=== PATIENT | male | born 1985 | race Caucasian/White ===

== ENCOUNTER → 2024-06-13 12:31 | Outpatient (REF) | payer OTHER, SELFPAY | LOC: RCS 12:31 | PROVIDERS: ATTENDING PHYSICIAN Internal Medicine Infectious Disease; FAMILY PHYSICIAN Registered Nurse | DX: Z01.812 Encounter for preprocedural laboratory examination (principal) | CPT/HCPCS: 93005 ==

== ENCOUNTER → 2024-06-20 11:49 | Outpatient (REF) | payer OTHER, SELFPAY | LOC: REG 11:49 | PROVIDERS: ATTENDING PHYSICIAN Internal Medicine Infectious Disease; FAMILY PHYSICIAN Family Medicine | DX: Z51.81 Encounter for therapeutic drug level monitoring (principal) | CPT/HCPCS: 93005 ==

== ENCOUNTER → 2024-08-06 10:13 | Outpatient (REF) | payer OTHER, SELFPAY | LOC: RCS 10:13 | PROVIDERS: ATTENDING PHYSICIAN Internal Medicine Cardiovascular Disease; FAMILY PHYSICIAN Registered Nurse | DX: I31.39 Other pericardial effusion (noninflammatory) (principal) | CPT/HCPCS: 93306 ==

== ENCOUNTER 2024-12-13 09:17 | Emergency (ER) | payer OTHER, SELFPAY ==
[2024-12-13 09:32] VITALS: BP 139/114
--- NOTE | 2024-12-13 09:35 | ED.GENMED ---
ED Provider Triage
<Gus Daniel PA-C - Last Filed: 12/13/24 09:36>
-
Patient seen by provider in Triage?: Seen in Triage
Attestation: A medical screening examination has been initiated by a qualified medical provider. Based on the assessment performed at this time, it has been determined that an emergent medical condition may exist and the patient has been informed
that further medical evaluation and possible additional diagnostic testing may be needed.
HPI: 39-year-old male presents to the emergency department for evaluation of left-sided chest heaviness that is been ongoing for the past 3 days. No obvious provoking or palliating factors. Describes it as a '200 pound man standing on my chest'.
Has family history of precocious coronary disease, no tobacco use.
GENERAL: Alert , in no apparent distress
EYE: No visual abnormalities.
NECK: Trachea midline
ENT: No visible abnormalities.
LUNGS: No acute respiratory distress
NEUROLOGICAL: Alert and oriented
SKIN: Skin intact. No visible changes.
MUSCULOSKELETAL: Moving extremities normally
PSYCH: Normal and appropriate interaction.
This is a medical evaluation conducted in person to initiate diagnostic evaluation and provide initial therapeutics. Please see further documentation by the treating clinician.
History of Present Illness
<Gus Daniel PA-C - Last Filed: 12/13/24 09:36>
General
Chief Complaint: Chest Pain
Time Seen by Provider: 12/13/24 10:47
<Danni Babcock PA-C - Last Filed: 12/13/24 17:30>
General
Source: patient and family
Exam Limitations: none
History of Present Illness
History of Present Illness:
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 Patient reports left sided chest pain
for the past 3 days. He reports a constant throbbing pain that becomes worse in spirts. Nothing seems to make the pain better or worse. Specifically, he denies any pleuritic or exertional pain. He also had some tingling in his left 4th and 5th
fingers last night. He wants to make sure everything is okay because he has a strong family history of heart disease. He denies any shortness of breath, cough, fever, vomiting. 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 He is no
longer on anticoagulation. He also had pericarditis last year. He had an echocardiogram in July 2024 which was normal.
Past History
<Gus Daniel PA-C - Last Filed: 12/13/24 09:36>
Past History
ED Past Medical History: None
ED Past Surgical History: None
Phy Exam
<Danni Babcock PA-C - Last Filed: 12/13/24 17:30>
General Physical Exam
General Presentation: well appearing and no apparent distress
General age: appears stated age
General Skin: warm and dry
General Habitus: normal
General Mental: alert
ENT Exam
ENT Exam: normocephalic
Cardiovascular Exam
Cardiovascular Exam: regular rate/rhythm and no murmur
Pulmonary Exam
Pulmonary Exam: lungs clear, no respiratory distress, no rales, no crackles and no rhonchi
Neurological Exam
Neurological Exam: alert
[place] Coma Scale
Eye Opening: Spontaneous
Verbal Response: Oriented
Motor Response: Obeys Commands
GCS Total Score: 15
Skin Exam
Skin Exam: normal color and warm/dry
Psychiatric Exam
Psychiatric Exam: normal mood/affect
Scores
<Danni Babcock PA-C - Last Filed: 12/13/24 17:30>
Heart Score for Chest Pain Patients
STEMI patient?: No
History: Moderately Suspicious
ECG: Normal
Age: </= 45 years
Risk Factors: 1 or 2 Risk Factors
Troponin: </= Normal Limit
Heart Score for Chest Pain Patients: 2
Heart Score Risk: 2.5% MACE over next 6 weeks
Course
<Gus Daniel PA-C - Last Filed: 12/13/24 09:36>
Orders/Labs/Results
Orders:
Orders
12/13/24 09:22
Electrocardiogram (*1) Urgent
Reason for Study: Chest Pain
EKG- Treatment ONCE
12/13/24 09:35
CR Chest - 2 Views Urgent
Comment:
Reason For Exam: chest pain
12/13/24 09:46
Complete Blood Count/With Diff Urgent
Comprehensive Metabolic Panel Urgent
Troponin I Urgent
12/13/24 11:21
D-Dimer Urgent
12/13/24 11:55
CT Chest PE Study Urgent
Comment:
Reason For Exam: Chest pain, elevated D-dimer
12/13/24 13:54
Echo 2D MMode Color/Doppler Urgent
Reason for Study: eval pericardial effusion
Abnormal Lab Results
12/13/24 12/13/24
09:46 11:21
MCH 31.5 H pg
(27.0-31.0)
RDW 14.8 H %
(11.5-14.5)
Absolute Neuts (auto) 7.6 H 10^3/uL
(1.4-6.5)
Absolute Monos (auto) 0.8 H 10^3/uL
(0.1-0.6)
Neutrophils % 78.1 H %
(42.2-75.2)
Lymphocytes % 12.2 L %
(20.5-51.1)
D-Dimer 1.23 H ug/mlFEU
(0.00-0.50)
Carbon Dioxide 21 L mmol/L
(22-30)
Glucose 105 H mg/dl
(70-99)
AST 119 H U/L
(17-59)
ALT 100 H U/L
(0-50)
Alkaline Phosphatase 426 H U/L
(38-126)
Total Protein 8.6 H g/dl
(6.3-8.2)
Albumin 5.1 H g/dl
(3.5-5.0)
12/13/24 09:46
12/13/24 09:46
Vital Signs
Initial and Last Documented VS:
Initial Vital Signs
Temp Pulse Resp BP Pulse Ox
98.0 F 82 16 139/114 98
12/13/24 09:32 12/13/24 09:32 12/13/24 09:32 12/13/24 09:32 12/13/24 09:32
Last Documented Vital Signs
Temp Pulse Resp BP Pulse Ox
98.0 F 76 20 151/108 98
12/13/24 09:32 12/13/24 15:24 12/13/24 15:24 12/13/24 15:24 12/13/24 15:24
Alaynalt;Danni Babcock PA-C - Last Filed: 12/13/24 17:30>
Orders/Labs/Results
Orders:
Orders
12/13/24 09:22
Electrocardiogram (*1) Urgent
Reason for Study: Chest Pain
EKG- Treatment ONCE
12/13/24 09:35
CR Chest - 2 Views Urgent
Comment:
Reason For Exam: chest pain
12/13/24 09:46
Complete Blood Count/With Diff Urgent
Comprehensive Metabolic Panel Urgent
Troponin I Urgent
12/13/24 11:21
D-Dimer Urgent
12/13/24 11:55
CT Chest PE Study Urgent
Comment:
Reason For Exam: Chest pain, elevated D-dimer
12/13/24 13:54
Echo 2D MMode Color/Doppler Urgent
Reason for Study: eval pericardial effusion
Abnormal Lab Results
12/13/24 12/13/24
09:46 11:21
MCH 31.5 H pg
(27.0-31.0)
RDW 14.8 H %
(11.5-14.5)
Absolute Neuts (auto) 7.6 H 10^3/uL
(1.4-6.5)
Absolute Monos (auto) 0.8 H 10^3/uL
(0.1-0.6)
Neutrophils % 78.1 H %
(42.2-75.2)
Lymphocytes % 12.2 L %
(20.5-51.1)
D-Dimer 1.23 H ug/mlFEU
(0.00-0.50)
Carbon Dioxide 21 L mmol/L
(22-30)
Glucose 105 H mg/dl
(70-99)
AST 119 H U/L
(17-59)
ALT 100 H U/L
(0-50)
Alkaline Phosphatase 426 H U/L
(38-126)
Total Protein 8.6 H g/dl
(6.3-8.2)
Albumin 5.1 H g/dl
(3.5-5.0)
12/13/24 09:46
12/13/24 09:46
Vital Signs
Initial and Last Documented VS:
Initial Vital Signs
Temp Pulse Resp BP Pulse Ox
98.0 F 82 16 139/114 98
12/13/24 09:32 12/13/24 09:32 12/13/24 09:32 12/13/24 09:32 12/13/24 09:32
Last Documented Vital Signs
Temp Pulse Resp BP Pulse Ox
98.0 F 76 20 151/108 98
12/13/24 09:32 12/13/24 15:24 12/13/24 15:24 12/13/24 15:24 12/13/24 15:24
<Mansoor Cole, DO - Last Filed: 12/13/24 14:10>
Orders/Labs/Results
Orders:
Orders
12/13/24 09:22
Electrocardiogram (*1) Urgent
Reason for Study: Chest Pain
EKG- Treatment ONCE
12/13/24 09:35
CR Chest - 2 Views Urgent
Comment:
Reason For Exam: chest pain
12/13/24 09:46
Complete Blood Count/With Diff Urgent
Comprehensive Metabolic Panel Urgent
Troponin I Urgent
12/13/24 11:21
D-Dimer Urgent
12/13/24 11:55
CT Chest PE Study Urgent
Comment:
Reason For Exam: Chest pain, elevated D-dimer
12/13/24 13:54
Echo 2D MMode Color/Doppler Urgent
Reason for Study: eval pericardial effusion
Abnormal Lab Results
12/13/24 12/13/24
09:46 11:21
MCH 31.5 H pg
(27.0-31.0)
RDW 14.8 H %
(11.5-14.5)
Absolute Neuts (auto) 7.6 H 10^3/uL
(1.4-6.5)
Absolute Monos (auto) 0.8 H 10^3/uL
(0.1-0.6)
Neutrophils % 78.1 H %
(42.2-75.2)
Lymphocytes % 12.2 L %
(20.5-51.1)
D-Dimer 1.23 H ug/mlFEU
(0.00-0.50)
Carbon Dioxide 21 L mmol/L
(22-30)
Glucose 105 H mg/dl
(70-99)
AST 119 H U/L
(17-59)
ALT 100 H U/L
(0-50)
Alkaline Phosphatase 426 H U/L
(38-126)
Total Protein 8.6 H g/dl
(6.3-8.2)
Albumin 5.1 H g/dl
(3.5-5.0)
12/13/24 09:46
12/13/24 09:46
Vital Signs
Initial and Last Documented VS:
Initial Vital Signs
Temp Pulse Resp BP Pulse Ox
98.0 F 82 16 139/114 98
12/13/24 09:32 12/13/24 09:32 12/13/24 09:32 12/13/24 09:32 12/13/24 09:32
Last Documented Vital Signs
Temp Pulse Resp BP Pulse Ox
98.0 F 76 20 151/108 98
12/13/24 09:32 12/13/24 15:24 12/13/24 15:24 12/13/24 15:24 12/13/24 15:24
Alaynalt;Danni Babcock PA-C - Last Filed: 12/13/24 17:30>
MDM/Problems Addressed
Differential Diagnosis Includes:
39yoM here with chest pain x several days. Nothing makes it better or worse. Otherwise asymptomatic. Hx of PE and pericarditis last year. He is mildly hypertensive with otherwise stable vitals. He is well appearing in no acute distress. Exam is
reassuring. Differential diagnosis includes but is not limited to: ACS, PE, pericarditis, musculoskeletal, nonspecific chest pain
Initial ED plan: Cardiac labs, EKG, and CXR obtained in triage. EKG shows NSR without ischemic changes and troponin WNL. CXR is normal. Will obtain D-dimer given history of VTE.
<Danni Babcock PA-C - Last Filed: 12/13/24 17:30>
*EKG
Interpreted by ED Provider?: Yes
EKG Intrepretation Date: 12/13/24
Heart Rate: 92
Rate: normal
Rhythm: sinus
[place]: normal axis
Interval: normal interval
QRS Pattern: normal QRS
Ischemia: no ischemia
*Critical Care Note
Total Time (30-74mins, 75-104mins- exclusive of procedures): Not Applicable
<Danni Babcock PA-C - Last Filed: 12/13/24 17:30>
Update Note
Update Note:
D-dimer elevated and CTA chest subsequently ordered. CT is negative for pulmonary embolism but does show a small to moderate pericardial effusion. Case was discussed with pipe smoking machine operator, Dr. Brewer, and echocardiogram ordered per recommendations.
Echo shows thickened pericardium with trivial effusion. EF normal at 54%. Thickened pericardium is very nonspecific per cardiology. He denies any pleuritic or position chest pain and there are no EKG findings to suggest pericarditis. Unclear
etiology of pain. No indication for hospitalization at this time. He was advised to f/u with PCP and cardiology. ED return precautions discussed. Patient in agreement with plan and he was discharged in stable condition.
ED Attending Note
<Gus Daniel PA-C - Last Filed: 12/13/24 09:36>
-
Portions of this chart may have been created with voice recognition software.� Occasional wrong word or��sound alike� substitutions may have occurred due to the inherent limitations of voice recognition software.
<Mansoor Cole DO - Last Filed: 12/13/24 14:10>
ED Attending Note
Patient seen and examined by attending physician: Yes
I performed the substantive portion of visit, reviewed & personally made and approve the management plan that is documented in note by myself or DELFINO.: Yes
ED Attending Note:
I have seen and evaluated the patient with a [id number] encounter. I have spoken to the advance practicer provider and involved in the medical history, the physical exam, medical decision making.
Evaluation and management service: agree unless noted differently below.
Results interpretation: agree unless noted differently below.
Focused HPI: 39-year-old male presenting for evaluation of chest pain. Patient denies shortness of breath
Physical exam: Sitting bed comfortably. Lungs clear. Heart regular rate and rhythm
Medical Decision Making: Given his prior history, CT was performed to rule out PE. I did reference pericardial effusion. Cardiology made aware and will obtain echo
Discharge Plan
Departure
Patient Disposition: Home (Routine Discharge)
Date of Disposition: 12/13/24
Time of Disposition: 15:48
Patient with high blood pressure during this ER visit?: Yes
Discharge Problem:
Chest pain
Prescriptions:
No Action
nabumetone 750 MG tablet
750 mg PO BID Qty: 40 0RF
hydrocodone-acetaminophen [Vicodin] 1 EACH tablet
1 ea PO Q4HPRN PRN (Reason: pain) Qty: 20 0RF
oxycodone-acetaminophen [Percocet] 1 EACH tablet
1 ea PO Q6HPRN PRN (Reason: pain) Qty: 12 0RF
Referrals:
Betito Monk MD [Active] -
Lana Cramer CRNP [Family Provider] -
Activity Restrictions/Additional Instructions:
Please follow-up with your family doctor and pipe smoking machine operator. Return to the ER with any new or worsening symptoms.
Interventions
Interventions:
*Risk Screen - Suicide Last Done: 12/13/24 09:32
*General Assessment Last Done: 12/13/24 11:23
*Neglect/Abuse Screening Last Done: 12/13/24 09:32
ED- Fall Risk Assessment Last Done: 12/13/24 16:04
*ED COVID-19 Vaccine History Last Done: 12/13/24 11:23
*Nursing Disposition Last Done: 12/13/24 16:04
ED- Cardiac Assessment Last Done: 12/13/24 11:23
Discharge Date and Time
Discharge Date/Time: 12/13/24 16:05
Print Language: SETS[place]
[2024-12-13 10:00] LABS: % Basophils 0.3 % (0-2); % Immature Granulocytes 0.3 % (0-0.5); % Lymphocytes 12.2 % (20.5-51.1); % Monocytes 8.1 % (1.7-9.3); % Neutrophils 78.1 % (42.2-75.2); Absolute Eosinophils 0.1 10^3/uL (0-0.7); Absolute Lymphocytes 1.2 10^3/uL (1.2-3.4); Absolute Monocytes 0.8 10^3/uL (0.1-0.6); Absolute Neutrophils 7.6 10^3/uL (1.4-6.5); Hematocrit 49.9 % (39.0-52.0); Hemoglobin 17.3 g/dL (13.0-18.0); Mean Corp Hgb Conc. 34.7 g/dL (33.0-37.0); Mean Corpuscular Hgb 31.5 pg (27.0-31.0); Mean Corpuscular Volume 90.7 fL (80.0-94.0); Mean Platelet Volume 9.6 fL (7.4-10.4); Nucleated Red Blood Cells % 0 % (-); Platelet Count 241 10^3/uL (130-400); Red Cell Dist. Width 14.8 % (11.5-14.5); White Blood Cell Count 9.7 10^3/uL (4.8-10.8)
[2024-12-13 10:22] LABS: ALT (SGPT) 100 U/L (0-50); AST (SGOT) 119 U/L (17-59); Albumin 5.1 g/dl (3.5-5.0); Alkaline Phosphatase 426 U/L (38-126); Calcium 9.9 mg/dl (8.4-10.2); Carbon Dioxide 21 mmol/L (22-30); Chloride 103 mmol/L (98-107); Glucose 105 mg/dl (70-99); Potassium 4.1 mmol/L (3.5-5.1); Sodium 138 mmol/L (135-145); Total Bilirubin 1.1 mg/dl (0.2-1.3); Total Protein 8.6 g/dl (6.3-8.2); eGFR > 60.00
[2024-12-13 10:33] LABS: Troponin I < 0.012 ng/ml
[2024-12-13 10:48] LABS: Blood Urea Nitrogen 12 mg/dl (9-20)
[2024-12-13 11:22] VITALS: BP 142/119
[2024-12-13 11:49] LABS: D-Dimer 1.23 ug/mlFEU (0.00-0.50)
[2024-12-13 15:24] VITALS: BP 151/108
== END 2024-12-13 16:05 | disposition home or self-care (01) ==
LOC: EMR 09:17
PROVIDERS: Physician Assistant; EMERGENCY PHYSICIAN Student in an Organized Health Care Education/Training Program; FAMILY PHYSICIAN Registered Nurse
DX: R07.89 Other chest pain (principal); R03.0 Elevated blood-pressure reading, without diagnosis of hypertension
CPT/HCPCS: 99285; 71046; 71275; 80053; 84484; 85025; 85379; 93005; 93306; Q9967